=== PATIENT | female | born 1985 | race Caucasian/White ===

== ENCOUNTER 2017-04-30 11:03 | Emergency (ER) | payer OTHER ==
[~2017-04-30] VITALS: Ht 170.2 cm; Wt 46.7 kg
--- NOTE | ~2017-04-30 | EKG ---
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
[2017-04-30 11:32] LABS: BASOPHILS 0.8 % (0.0-2.0); EOSINOPHILS 1.1 % (0.0-3.0); HEMATOCRIT 42.7 % (37.0-47.0); HEMOGLOBIN 14.7 gm/dL (12.0-15.0); LYMPHOCYTES 32.7 % (24.0-44.0); MCH 29.5 pg (26.0-34.0); MCHC 34.4 g/dL (28.0-37.0); MCV 85.9 fL (80.0-100.0); MONOCYTES 6.1 % (1.0-8.0); PLATELET COUNT 197 thou/uL (150-400); POLYS 59.3 % (36.0-66.0); RBC 4.98 mil/uL (4.20-5.00); RDW 12.9 % (10.5-14.5); WBC 6.8 thou/uL (4.0-11.0)
[2017-04-30 11:34] LABS: MANUAL DIFF NO
[2017-04-30 11:40] LABS: ANION GAP 9 mmol/L (7-16); BUN 12 mg/dL (7-18); CALCIUM 8.8 mg/dL (8.5-10.1); CHLORIDE 103 mmol/L (98-107); CO2 27 mmol/L (21-32); CREATININE 0.7 mg/dL (0.6-1.0); GLUCOSE 94 mg/dL (74-106); POTASSIUM 3.8 mmol/L (3.5-5.1); SODIUM 139 mmol/L (136-145)
[2017-04-30 11:45] LABS: AMP/METHAMP Negative (Negative); BARBITURATES Negative (Negative); BENZODIAZEPINES Negative (Negative); COCAINE Negative (Negative); METHADONE Negative (Negative); OPIATES Negative (Negative); PCP Negative (Negative); THC Negative (Negative)
[2017-04-30 11:47] LABS: ALBUMIN 4.3 g/dL (3.4-5.0); ALKALINE PHOSPHATASE 75 U/L (46-116); SGOT 16 U/L (15-37); SGPT 21 U/L (30-65); TOTAL BILIRUBIN 0.9 mg/dL (<0.1-1.0); TOTAL PROTEIN 7.3 g/dL (6.4-8.2); TROPONIN-I < 0.04 ng/mL (<0.06)
[2017-04-30] MEDS ORDERED: ATIVAN0.5 MG PO (12:47)
[2017-04-30] MEDS ORDERED: ZOFRAN ODT4 MG DISSOLVE (12:47)
[2017-04-30 13:33] VITALS: BP 114/66
== END 2017-04-30 13:33 | disposition home or self-care (01) ==
LOC: ER 11:03
PROVIDERS: Emergency Medicine
DX: F41.9 Anxiety disorder, unspecified (principal)

== ENCOUNTER → 2017-06-26 | Outpatient (CLI) | payer OTHER ==
[~2017-06-26] MED LIST: ATIVAN0.5 MG PO; ELIQUIS5 MG PO; HYDROCODONE-AP1 EAC6 PO; LOPRESSOR50 PO; MIRENA1 EACH INTRAUTERI; NORFLEX100 MG PO; PAMELOR10 MG PO; ZOFRAN ODT4 MG DISSOLVE
--- NOTE | ~2017-06-26 | P ---
[facility] [place] [address] PROCEDURE REPORT Name: RUBIN ELIAS Room #: REG ELEAZAR Nelson.#: [id number] Admission: 06/26/17 Attend Phys: Royal Veloz MD Discharge: Date of : [birth year] Report #: [id number] THIS REPORT FOR: //name// CC: FAM unknown GLORIA KINSEY Veloz PREOPERATIVE DIAGNOSIS: Syncope. HISTORY OF PRESENT ILLNESS: The patient is a patient with a history of palpitations and syncope. She has normal EF. She has worn 3-4 cardiac monitors, none of which have demonstrated any supraventricular tachycardia. She has also worn monitors while she has passed out and there were no arrhythmias documented. She is here for a tilt table test looking for vasovagal syncope versus POTS. PROCEDURE: The patient underwent tilt table testing in a standard fashion. Her initial pulse and heart rates were stable. The patient was eventually positioned standing during the tilt table test and there was no significant change in the heart rate or blood pressure. She did receive nitroglycerin sublingual, which did result in some sinus tachycardia, but her blood pressure remained stable with the lowest blood pressure being 112/72. She did feel some dizziness and chest heaviness associated with this. The patient never had a bradycardic or hypotensive response to suggest a vasovagal mechanism. CONCLUSIONS: Normal tilt table test with no evidence to suggest POTS nor vasovagal syncope. <ELECTRONICALLY SIGNED> By: Royal Veloz MD 08/09/17 1749 1359 1748 Royal Veloz MD /nt
== END | disposition home or self-care (01) ==
LOC: CATH 10:23
DX: R55 Syncope and collapse (principal); J45.909 Unspecified asthma, uncomplicated; G43.909 Migraine, unspecified, not intractable, without status migrainosus; R00.0 Tachycardia, unspecified

== ENCOUNTER 2017-08-09 06:32 | Observation (INO) | payer OTHER ==
[~2017-08-09] VITALS: Ht 170.2 cm; Wt 59.0 kg
[2017-08-09] VITALS (20 sets, daily range): BP systolic 102–118; BP diastolic 51–75
--- NOTE | ~2017-08-09 | EKG ---
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1985 Requested By: Royal Veloz Order Number: [id number] MD: Luciano Corrigan Measurements Intervals [place] Rate: 77 P: 64 MA: 135 QRS: 43 QRSD: 72 T: 31 QT: 365 QTc: 414 Interpretive Statements Sinus rhythm Low voltage, precordial leads Compared to ECG 04/30/2017 11:06:36 Sinus tachycardia no longer present Electronically Signed On 08-11-2017 13:41:04 CDT by Luciano Corrigan [email or web address] <ELECTRONICALLY SIGNED> By: Luciano Corrigan MD, [facility] 08/11/17 1341 0639 0639 Luciano Corrigan MD, [facility] /EPI
--- NOTE | ~2017-08-09 | P ---
[facility] [place] [address] PROCEDURE REPORT Name: RUBIN ELIAS Room #: 215-P [facility] Lazaro M.R.#: [id number] Admission: 08/09/17 Attend Phys: Royal Veloz MD Discharge: 08/10/17 Date of : 89 Report #: [id number] THIS REPORT FOR: //name// CC: GLORIA Veloz DATE OF SERVICE: 08/09/2017 HISTORY: The patient is a 32-year-old female with a history of palpitations who has worn multiple monitors with no obvious SVT. She has also undergone tilt table testing, which was within normal limits. She is here for EP study to rule out supraventricular tachycardia. PROCEDURES PERFORMED: 1. SVT ablation, CPT code 91290. 2. EP left atrial pacing and recording, CPT code 64098. 3. Program stimulation and pacing after IV, CPT code 13779. 4. 3D mapping, CPT code 23048. 5. Mapping of tachycardia, CPT code 81452. ANESTHESIA: The patient underwent MAC anesthesia with no anesthesia related complications. DESCRIPTION OF PROCEDURE: The patient underwent informed consent. We discussed the details of the procedure, which include but not limited to bleeding, vascular damage, stroke, CO as well as damage to the [place] conduction system requiring permanent pacemaker. We also discussed that she is high risk for DVT given that she is on control and that I will recommend that she take a week of Pradaxa post-ablation. The patient was brought to the EP laboratory in a fasting and sedated state. Initially, I did not recommend that we place patches on the patient as I did not think it was highly likely that we would induce anything. Next, I injected lidocaine to the bilateral groins and obtained access to bilateral femoral veins twice placing two 6-Bangladeshi short sheath on the right femoral vein and a 6-Bangladeshi and 7-Bangladeshi locking sheaths in the left femoral vein. These were positioned using the modified Seldinger technique. Next, under fluoroscopy, I placed 3 quadripolar catheters at the HRA, His and RV positions. I then attempted to position my decapolar catheter in the coronary sinus. Of note, I attempted for a prolonged period to place the decapolar catheter all entirely into the CS, but this was not possible. Therefore, it appeared that CS 5, 6 was at the os whereas the more proximal poles were sitting in the atrium. Next, a basic EP study was performed. At baseline, the patient was in sinus rhythm with a sinus cycle length of 770 milliseconds, RI interval 140 milliseconds, QRS duration 70 milliseconds, QT interval 365 milliseconds, AH interval 67 milliseconds and HV interval 47 milliseconds. Next, atrial burst pacing was performed and AV block [facility] [address] [place] [address] PROCEDURE REPORT Name: JADARUBIN POPPY Room #: 215-P [facility] Lazaro M.R.#: [id number] Admission: 08/09/17 Attend Phys: Royal Veloz MD Discharge: 08/10/17 Date of : 89 Report #: [id number] was noted at 350 milliseconds. VA block was noted at 450 milliseconds and was midline. VA ERP was noted at 350 milliseconds at a [address] cycle length. VA conduction was both midline and decremental. Atrial ERP was noted 270 milliseconds at a [address] cycle length with no jumps noted. I then delivered double atrial extrastimuli and no echoes or SVT were induced. Atrial burst pacing was performed down to 240 milliseconds to see if we could induce any atrial tachycardia or atrial flutter and nothing was induced either. Next, isoproterenol was started at 1 mcg per minute and AV block was noted at 300 milliseconds. Atrial ERP was noted at 230 milliseconds at a [address] cycle length. VA block was noted at 280 milliseconds and VERP was noted at 200 milliseconds at a [address] cycle length. VA conduction remained midline. We tested on one of iso for approximately 30 minutes and then I increased iso to 2 mcg per minute. AV block was noted at 270 milliseconds. Atrial ERP was noted at 270 milliseconds. Ventricular ERP was noted at 190 milliseconds at a [address] cycle length. There were no echoes and there was no SVT. Next, isoproterenol was initiated at 4 mcg per minute and I continued atrial burst pacing. When I atrial burst at 240 milliseconds, the patient had a 5-beat run of supraventricular tachycardia that was earliest at the His, had a septal VA time of around 110 milliseconds; however, this terminated with an atrial signal. Again, this was nonsustained. I continued atrially burst pacing and SVT was induced with a tachycardia cycle length of 240 milliseconds, a septal VA time of 110 milliseconds. I was able to perform ventricular entrainment while pacing at 220 milliseconds. The PPI minus tachycardia cycle length was 160 milliseconds and there was a VA HV response. This was consistent with atypical AV liv reentrant tachycardia. I was quite surprised to induce this. It was actually difficult to terminate and I thought I was going to have to cardiovert her due to the speed. I stopped isoproterenol and tachycardia slowed down and I was able to terminate this with ventricular burst pacing. 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 3D mapping and ablation: Next, I exchanged my HRA catheter for an SR0 sheath and a 4 mm Bios[employer] [place] ablation catheter. I created a detailed 3D geometry of the slow pathway region. I marked the His and then located the slow pathway. Prior to ablation, we did place patches and I did pull catheters from her heart while they were turning the patient. I positioned all the catheters back and I attempted to see if I could get the CS to sit better, but again it would not seat itself into the coronary sinus all the way. I found a nice slow pathway potential, which was 21 mm from the His cloud. I performed ablation here at 50 hodges and 55 degrees. I performed a total of 6 ablation lesions. We had at least 90 seconds of a nice slow junctionals. We then performed post-ablation testing. Post-ablation, I immediately started the isoproterenol back at 2 mcg per minute. AV block was noted to be less than 230 milliseconds. Atrial ERP was 190 milliseconds at a [address] cycle length. I performed [facility] [address] [place] [address] PROCEDURE REPORT Name: RUBIN ELIAS POPPY Room #: 215-P [facility] Loya#: [id number] Admission: 08/09/17 Attend Phys: Royal Veloz MD Discharge: 08/10/17 Date of : 89 Report #: [id number] aggressive atrial burst pacing and could not induce SVT. We then turned isoproterenol down to 1 mcg per minute, performed aggressive pacing and again no inducible SVT and isoproterenol was discontinued and we continued testing and there were no AV liv echoes nor any inducible SVT. As such, the procedure was concluded. Post-ablation, the patient was in sinus rhythm with a sinus cycle length of 640 milliseconds, RI interval 130 milliseconds, QRS duration 70 milliseconds, QT interval 330 milliseconds and AH interval 62 milliseconds and HV interval 48 milliseconds. CONCLUSIONS: 1. 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 2. Normal SA liv function. 3. Normal AV liv function. 4. Normal His-Purkinje function. 5. No evidence of a concealed accessory pathway. <ELECTRONICALLY SIGNED> By: Royal Veloz MD 09/06/17 1409 1208 0031 Royal Veloz MD /nt
--- NOTE | ~2017-08-09 | D ---
[facility] [place] [address] DISCHARGE SUMMARY Name: RUBIN ELIAS Room #: 215-P [facility] Lazaro M.RLauren#: [id number] Admission: 08/09/17 Attend Phys: Royal Veloz MD Discharge: 08/10/17 Date of : [birth year] Report #: [id number] THIS REPORT FOR: //name// CC: GLORIA Veloz DATE OF SERVICE: 08/10/2017 DIAGNOSIS: Supraventricular tachycardia. PROCEDURES PERFORMED: SVT ablation. HISTORY OF PRESENT ILLNESS: The patient is a 32-year-old female with a history of palpitations who was here for SVT ablation to rule out arrhythmias. She has previously worn several monitors that have been unrevealing and has had some syncopal episodes that have been unexplained. She has a structurally normal heart and she has undergone a tilt table test that was normal. She underwent EP study today and I induced atypical AV liv reentrant tachycardia, which was successfully ablated. There were no intraprocedure complications. HOSPITAL COURSE: The patient was monitored in the CCU on telemetry, she remained in sinus rhythm. After 6 hours of bed rest she did get up and had some bleeding from the right groin. Pressure was held and she was placed on bed rest again for another 6 hours. Again, she had rebleeding and then remained in bed the remainder of the night until I saw her this morning at around 11:00. I had her get up and walk around and there is no recurrent bleeding. She denies any chest pain, shortness of breath. PHYSICAL EXAMINATION: HEART: Regular rate and rhythm. LUNGS: Clear to auscultation bilaterally. ABDOMEN: Soft, nontender. EXTREMITIES: Bilateral groins were within normal limits with no hematoma noted. There is no bruising noted either. DISPOSITION: As such, the patient was deemed stable for discharge home. She will discontinue her beta blockers. Given that she is on control, I have recommended that she start on Pradaxa tomorrow morning at 150 mg a day for a period of 10 days. She will then follow up with me in clinic in a few months to see how she is doing. <ELECTRONICALLY SIGNED> By: Royal Veloz MD 09/06/17 1409 1207 1310 Royal Veloz MD /nt
[~2017-08-09 06:32] MED LIST changes: -ELIQUIS5 MG PO; -HYDROCODONE-AP1 EAC6 PO; -LOPRESSOR50 PO; -MIRENA1 EACH INTRAUTERI; -NORFLEX100 MG PO; -PAMELOR10 MG PO
[2017-08-09] MEDS ORDERED: LOPRESSOR50 PO (06:57)
[2017-08-09] MEDS ORDERED: PAMELOR10 MG PO (06:57)
[2017-08-09 07:15] LABS: ABSOLUTE NEUTROPHILS 3.8 thou/uL (1.4-8.2); BASOPHILS 0.9 % (0.0-2.0); HEMOGLOBIN 13.4 gm/dL (12.0-15.0); LYMPHOCYTES 32.1 % (24.0-44.0); MCH 30.4 pg (26.0-34.0); MCHC 35.2 g/dL (28.0-37.0); MCV 86.4 fL (80.0-100.0); MONOCYTES 6.8 % (1.0-8.0); PLATELET COUNT 209 thou/uL (150-400); POLYS 58.2 % (36.0-66.0); RDW 12.6 % (10.5-14.5); WBC 6.6 thou/uL (4.0-11.0)
[2017-08-09 07:26] LABS: CALCIUM 8.6 mg/dL (8.5-10.1); CREATININE 0.6 mg/dL (0.6-1.0); POTASSIUM 3.7 mmol/L (3.5-5.1)
[2017-08-09 07:32] LABS: ALBUMIN 3.7 g/dL (3.4-5.0); TOTAL BILIRUBIN 0.7 mg/dL (<0.1-1.0); TOTAL PROTEIN 6.7 g/dL (6.4-8.2)
[2017-08-09 07:33] LABS: APTT 28.1 Seconds (24.5-32.8); PROTIME 10.3 Seconds (9.3-11.4)
[2017-08-10 00:05] VITALS: BP 115/67
[2017-08-10 04:43] VITALS: BP 90/52
[2017-08-10 07:30] VITALS: BP 98/68
[2017-08-10 09:57] LABS: HEMATOCRIT 35.7 % (37.0-47.0); HEMOGLOBIN 12.5 gm/dL (12.0-15.0); MCH 30.6 pg (26.0-34.0); MCHC 35.1 g/dL (28.0-37.0); MCV 87.2 fL (80.0-100.0); RBC 4.09 mil/uL (4.20-5.00); RDW 12.6 % (10.5-14.5); WBC 7.4 thou/uL (4.0-11.0)
[2017-08-10 11:45] VITALS: BP 104/65
[2017-08-10 12:16] VITALS: BP 104/65
== END 2017-08-10 13:30 | disposition home or self-care (01) ==
LOC: CATH 06:32 → 2N 14:14
PROVIDERS: Internal Medicine Cardiovascular Disease
DX: I47.1 Supraventricular tachycardia (principal); G43.909 Migraine, unspecified, not intractable, without status migrainosus; J45.909 Unspecified asthma, uncomplicated; Z82.49 Family history of ischemic heart disease and other diseases of the circulatory system
CPT/HCPCS: 62110; 62900; 70005

== ENCOUNTER → 2017-08-12 | Outpatient (CLI) | payer OTHER ==
[~2017-08-12] MED LIST changes: +ELIQUIS5 MG PO; +HYDROCODONE-AP1 EAC6 PO; +LOPRESSOR50 PO; +MIRENA1 EACH INTRAUTERI; +NORFLEX100 MG PO; +PAMELOR10 MG PO
--- NOTE | ~2017-08-12 | EKG ---
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
--- NOTE | ~2017-08-12 | 2DMMODE ---
[facility] [place] [address] 2 D/M-MODE ECHOCARDIOGRAM Name: RUBIN ELIAS Room #: REG CL [facility]#: [id number] Admission: 08/12/17 Attend Phys: ANITA Hernandez Discharge: Date of : 89 Date of Service: 08/12/17 1425 Report #: [id number] THIS REPORT FOR: //name// APPROVED REPORT Study performed: 08/12/2017 12:33:32 EXAM: Limited 2D, Doppler, and color-flow Echocardiogram Patient Location: Out-Patient Status: routine BSA: 1.59 HR: 72 bpm BP: 107/77 mmHg Rhythm: NSR Other Information Study Quality: Good Indications Chest discomfort, palpitations, short of breath. Rule out pericardial effusion. LV function. Status post ablation (08/09/17) Aortic Valve AoV Peak Ramos.: 1.33 m/s AO Peak Gr.: 7.05 mmHg Tricuspid Valve TR Peak Ramos.: 2.10 m/s RAP Estimate: 5.00 mmHg TR Peak Gr.: 17.72 mmHg PA Pressure: 23.00 mmHg Left Ventricle There is normal LV segmental wall motion. Left ventricular systolic function is normal. LVEF is 55%. Right Ventricle The right ventricle is normal size. The right ventricular systolic function is normal. Atria The left atrium size is normal. The right atrium size is normal. Aortic Valve The aortic valve is normal in structure. No aortic regurgitation is [facility] [address] [place] [address] 2 D/M-MODE ECHOCARDIOGRAM Name: RUBIN ELIAS Room #: REG [facility].#: [id number] Admission: 08/12/17 Attend Phys: ANITA Hernandez Discharge: Date of : 89 Date of Service: 08/12/171424 Report #: [id number] present. There is no aortic valvular stenosis. Mitral Valve The mitral valve is normal in structure. Trace mitral regurgitation. Tricuspid Valve The tricuspid valve is normal in structure. Mild tricuspid regurgitation. Estimated PAP is 20-25mmHg. Great Vessels IVC is normal in size and collapses >50% with inspiration. Pericardium There is no pericardial effusion. <Conclusion> Left ventricular systolic function is normal. LVEF is 55%. The right ventricle is normal size. The right ventricular systolic function is normal. The left atrium size is normal. The aortic valve is normal in structure. Trace mitral regurgitation. Mild tricuspid regurgitation. Estimated PAP is 20-25mmHg. There is no pericardial effusion. <ELECTRONICALLY SIGNED> By: Pepe Etienne MD, [facility] 08/12/17 1425 142 1425 Pepe Etienne MD, FACC /INF
== END ==
LOC: CV 11:24 → RAD 11:24
DX: R07.89 Other chest pain (principal); R06.00 Dyspnea, unspecified

== ENCOUNTER 2017-08-13 17:52 | Emergency (ER) | payer OTHER ==
[~2017-08-13] VITALS: Ht 170.2 cm; Wt 49.9 kg
[~2017-08-13 17:52] MED LIST changes: -ELIQUIS5 MG PO; -HYDROCODONE-AP1 EAC6 PO; -MIRENA1 EACH INTRAUTERI; -NORFLEX100 MG PO
[2017-08-13] MEDS ORDERED: ELIQUIS5 MG PO (19:36)
[2017-08-13] MEDS ORDERED: MIRENA1 EACH INTRAUTERI (19:36)
[2017-08-13] MEDS ORDERED: NORFLEX100 MG PO (19:53)
[2017-08-13] MEDS ORDERED: HYDROCODONE-AP1 EAC6 PO (19:53)
[2017-08-13 20:07] VITALS: BP 103/69
== END 2017-08-13 20:06 | disposition home or self-care (01) ==
LOC: ER 17:52
DX: M79.604 Pain in right leg (principal); R20.2 Paresthesia of skin; F41.9 Anxiety disorder, unspecified; G43.909 Migraine, unspecified, not intractable, without status migrainosus

== ENCOUNTER 2017-08-15 03:20 | Emergency (ER) | payer OTHER ==
[~2017-08-15] VITALS: Ht 170.2 cm; Wt 49.9 kg
[~2017-08-15 03:20] MED LIST changes: +ELIQUIS5 MG PO; +HYDROCODONE-AP1 EAC6 PO; +MIRENA1 EACH INTRAUTERI; +NORFLEX100 MG PO
[2017-08-15 04:24] VITALS: BP 109/79
== END 2017-08-15 04:24 | disposition home or self-care (01) ==
LOC: ER 03:20
DX: S70.11XA Contusion of right thigh, initial encounter (principal); R20.2 Paresthesia of skin; G43.909 Migraine, unspecified, not intractable, without status migrainosus; F41.9 Anxiety disorder, unspecified; Z95.5 Presence of coronary angioplasty implant and graft; X58.XXXA Exposure to other specified factors, initial encounter; Y93.89 Activity, other specified; Y92.89 Other specified places as the place of occurrence of the external cause; Y99.8 Other external cause status